=== PATIENT | male | born 1960 | race Caucasian/White ===

== ENCOUNTER 2016-10-29 19:07 | Emergency (ER) | payer MEDICAID ==
[~2016-10-29] VITALS: Ht 190.5 cm; Wt 94.8 kg
[2016-10-29 20:27] LABS: CONDITION Y; DEFINITIVE SEE PRINTOUT; Hematocrit 29.9 % (41.0-53.0); Hemoglobin 10.1 g/dL (13.5-17.5); Mean Corpuscular Hemoglobin 32.2 pg (28.0-32.0); Mean Corpuscular Hgb Conc. 33.9 g/dL (32.0-36.0); Mean Corpuscular Volume 94.8 fL (80.0-100.0); Mean Platelet Volume 7.4 fL (7.4-10.4); Platelet Count (auto) 328 10^3/uL (140-450); Red Cell Distribution Width 17.9 % (11.6-16.0); SUSPECT SEE PRINTOUT
[2016-10-29 20:49] LABS: Albumin 3.8 g/dL (3.4-5.0); BUN/Creatinine Ratio 13.3; Calcium 8.9 mg/dL (8.5-10.1); Potassium 4.2 mmol/L (3.5-5.1)
[2016-10-29 20:51] LABS: Bilirubin, Total 0.5 mg/dL (0.2-1.0); Total Protein 7.2 g/dL (6.4-8.2); White Blood Cell 33.2 10^3/uL (4.4-10.8)
[2016-10-29 20:52] LABS: Promyelocytes % 0; Reactive Lymphocytes 0
[2016-10-29 21:12] VITALS: BP 136/93
[2016-10-29 21:24] LABS: Metamyelocytes % 3; Myelocytes % 6
[2016-10-29 21:26] LABS: Platelet Estimate Adequate; Polychromasia Slight
[2016-10-29 21:27] LABS: Anisocytosis Moderate; Ovalocytes FEW; Tear Drop Cells FEW
== END 2016-10-30 00:08 | disposition home or self-care (01) ==
LOC: ER 19:17
DX: D72.829 Elevated white blood cell count, unspecified (principal)
CPT/HCPCS: 36415; 71010; 80053; 83605; 85007; 85027; 87040

== ENCOUNTER 2016-11-26 10:13 | Emergency (ER) | payer MEDICAID ==
[~2016-11-26] VITALS: Ht 190.5 cm; Wt 95.3 kg
[2016-11-26 11:13] LABS: Basophils # (auto) 0 uL; CONDITION Y; DEFINITIVE SEE PRINTOUT; Eosinophils # (auto) 0 uL; Eosinophils % (auto) 0.1 % (0.0-7.0); Hematocrit 19.1 % (41.0-53.0); Lymphocytes # (auto) 0.1 uL; Lymphocytes % (auto) 1.3 % (10.0-50.0); Mean Corpuscular Hemoglobin 33.3 pg (28.0-32.0); Mean Corpuscular Hgb Conc. 34.2 g/dL (32.0-36.0); Mean Corpuscular Volume 97.5 fL (80.0-100.0); Mean Platelet Volume 7.8 fL (7.4-10.4); Monocytes # (auto) 0 uL; Neutrophils # (auto) 9.6 uL; Neutrophils % (auto) 98.6 % (37.0-80.0); Platelet Count (auto) 106 10^3/uL (140-450); White Blood Cell 9.7 10^3/uL (4.4-10.8)
[2016-11-26] MEDS ORDERED: MORPHINE SULFATE 4 MG/ML SYRG IV ONE (11:15)
[2016-11-26] MEDS ORDERED: ONDANSETRON HCL 4 MG/2 ML VIAL IV ONE (11:15)
[2016-11-26 11:30] LABS: INR 0.98 (0.9-1.15); Partial Thromboplastin Time 28.4 sec (22.64-33.71); Prothrombin Time 10.7 sec (9.37-12.3)
[2016-11-26 11:31] LABS: Hemoglobin 6.5 g/dL (13.5-17.5); Red Cell Distribution Width 20.9 % (11.6-16.0)
[2016-11-26 11:45] LABS: Albumin 3.1 g/dL (3.4-5.0); Alkaline Phosphatase 47 U/L (45-117); Anion Gap 7 (5-15); Aspartate Aminotransferase 10 U/L (15-37); BUN/Creatinine Ratio 19.5; Bilirubin, Total 0.7 mg/dL (0.2-1.0); Blood Urea Nitrogen 15 mg/dL (7-18); Calcium 8.2 mg/dL (8.5-10.1); Carbon Dioxide 25 mmol/L (21-32); Chloride 106 mmol/L (98-107); GFR African American 134 mL/min; GFR Non-African American 111 mL/min; Glucose 135 mg/dL (74-106); Magnesium 2.4 mg/dL (1.6-2.6); Potassium 3.8 mmol/L (3.5-5.1); Sodium 138 mmol/L (136-145); Total Protein 5.8 g/dL (6.4-8.2)
[2016-11-26 11:58] LABS: Anisocytosis Moderate; Platelet Estimate Decreased
[2016-11-26 13:15] VITALS: BP 110/64
== END 2016-11-26 13:58 | disposition short-term general hospital (02) ==
LOC: EDBD 10:13 → EDUNIT# 10:13 → ER 10:13
DX: R07.9 Chest pain, unspecified (principal); D64.9 Anemia, unspecified; I25.2 Old myocardial infarction; F17.210 Nicotine dependence, cigarettes, uncomplicated; Z85.6 Personal history of leukemia; Z86.718 Personal history of other venous thrombosis and embolism
CPT/HCPCS: 36415; 71010; 80053; 83735; 84484; 85025; 85379; 85610; 85730; 86850; 86900; 86901; 93005; 96374; 96375; 99291; J2270; J2405; 86920

== ENCOUNTER 2016-12-02 11:41 | Observation (INO) | payer MEDICAID ==
[2016-12-02] VITALS (8 sets, daily range): BP systolic 107–133; BP diastolic 60–78
[~2016-12-02] VITALS: Ht 190.5 cm; Wt 95.3 kg
[2016-12-02] MEDS ORDERED: ACETAMINOPHEN 325 MG TAB PO ONE ×3 (12:30→15:45)
[2016-12-02] MEDS ORDERED: SODIUM CHLORIDE 0.9% 1,000 ML IV ONE (12:30)
[2016-12-02 12:50] LABS: BUN/Creatinine Ratio 18.8; Calcium 8.6 mg/dL (8.5-10.1); Potassium 3.8 mmol/L (3.5-5.1)
[2016-12-02 12:53] LABS: Total Protein 6.9 g/dL (6.4-8.2)
[2016-12-02] MEDS ORDERED: SODIUM CHLORIDE 0.9% 1,000 ML IVB ONE (13:30)
[2016-12-02 13:47] LABS: Basophils # (auto) 0 uL; CONDITION Y; DEFINITIVE SEE PRINTOUT; Eosinophils # (auto) 0 uL; Eosinophils % (auto) 14.8 % (0.0-7.0); Hematocrit 19.5 % (41.0-53.0); Lymphocytes # (auto) 0.1 uL; Lymphocytes % (auto) 35.2 % (10.0-50.0); Mean Corpuscular Hemoglobin 31.7 pg (28.0-32.0); Mean Corpuscular Volume 90.6 fL (80.0-100.0); Mean Platelet Volume 7.5 fL (7.4-10.4); Monocytes # (auto) 0 uL; Monocytes % (auto) 14.8 % (0.0-12.0); Neutrophils # (auto) 0.1 uL; Neutrophils % (auto) 35.2 % (37.0-80.0); Platelet Count (auto) 33 10^3/uL (140-450); Red Cell Distribution Width 17.6 % (11.6-16.0); SUSPECT SEE PRINTOUT
[2016-12-02 13:48] LABS: Hemoglobin 6.8 g/dL (13.5-17.5); White Blood Cell 0.2 10^3/uL (4.4-10.8)
[2016-12-02 13:51] LABS: Urine Bilirubin Negative (Negative); Urine Blood 1+ /uL (Negative); Urine Color Yellow (Yellow); Urine Glucose Normal (Normal); Urine Ketone Negative (Negative); Urine Nitrite Negative (Negative); Urine RBC 24 /hpf (0 - 3); Urine pH 6.5 (5.0-8.0)
[2016-12-02 13:57] LABS: INR 1.15 (0.9-1.15); Partial Thromboplastin Time 38.5 sec (22.64-33.71); Prothrombin Time 12.6 sec (9.37-12.3)
[2016-12-02 14:00] LABS: Platelet Estimate Markedly Decreased
[2016-12-02] MEDS ORDERED: methylPREDNISolone SOD SUCC 125 MG/2 ML VL ONE (16:19)
[2016-12-02] MEDS ORDERED: diphenhdrAMINE HCL 50 MG/1 ML VL ONE (16:19)
[2016-12-02] MEDS ORDERED: methylPREDNISolone SOD SUCC 125 MG/2 ML VL IV ONE (16:30)
[2016-12-02] MEDS ORDERED: diphenhdrAMINE HCL 50 MG/1 ML VL IV ONE (16:30)
[2016-12-02] MEDS ORDERED: MORPHINE SULF INJ 2 MG/ML SYRINGE 1ML IV ONE (17:15)
[2016-12-02] MEDS ORDERED: ONDANSETRON HCL 4 MG/2 ML VIAL IV ONE ×2 (17:15→18:15)
[2016-12-02] MEDS ORDERED: HYDROmorphone HCL 2 MG/ML VL IV ONE (18:15)
== END 2016-12-02 17:18 | disposition home or self-care (01) | DRG 663 ==
LOC: ER 11:41 → OVERFLOW 13:31 → ER 17:18
PROVIDERS: ADMIT Family Medicine; ATTEND Family Medicine
DX: D64.9 Anemia, unspecified (principal); C91.01 Acute lymphoblastic leukemia, in remission; D69.6 Thrombocytopenia, unspecified; F17.210 Nicotine dependence, cigarettes, uncomplicated; I25.2 Old myocardial infarction; Z86.19 Personal history of other infectious and parasitic diseases
CPT/HCPCS: 36415; 36430; 71010; 80053; 81001; 82962; 83605; 83735; 85025; 85610; 85730; 86850; 86900; 86901; 86920; 87040; 93005; 96361; 96374; 96375; 99291; G0378; J1170; J1200; J2270; J2405; J2930; J7030; P9016

== ENCOUNTER 2017-02-15 11:11 | Emergency (ER) | payer MEDICAID ==
[~2017-02-15] VITALS: Ht 182.9 cm; Wt 72.6 kg
[2017-02-15 11:18] VITALS: BP 120/77
[2017-02-15] MEDS ORDERED: SODIUM CHLORIDE 0.9% 1,000 ML IV ONE (11:45)
[2017-02-15] MEDS ORDERED: ONDANSETRON HCL 4 MG/2 ML VIAL IV ONE (11:45)
[2017-02-15 12:26] LABS: Basophils # (auto) 0 uL; Eosinophils # (auto) 0 uL; Eosinophils % (auto) 0.4 % (0.0-7.0); Monocytes # (auto) 1.3 uL
[2017-02-15 12:28] LABS: Basophils % (auto) 0.2 % (0.0-2.0); Hematocrit 29.8 % (41.0-53.0); Lymphocytes # (auto) 0.6 uL; Mean Corpuscular Hemoglobin 36.4 pg (28.0-32.0); Mean Corpuscular Hgb Conc. 33.8 g/dL (32.0-36.0); Mean Corpuscular Volume 107.8 fL (80.0-100.0); Mean Platelet Volume 8.8 fL (6.9-10.8); Monocytes % (auto) 16.6 % (0.0-12.0); Neutrophils # (auto) 6.1 uL; Neutrophils % (auto) 75.8 % (37.0-80.0); Nucleated Red Blood Cells % 0.1 %; Platelet Count (auto) 127 10^3/uL (140-450); Red Cell Distribution Width 22.8 % (11.8-14.3)
[2017-02-15 12:47] LABS: Albumin 4.2 g/dL (3.4-5.0); BUN/Creatinine Ratio 20.5; Bilirubin, Total 0.8 mg/dL (0.2-1.0); Calcium 9.2 mg/dL (8.5-10.1); Potassium 4.2 mmol/L (3.5-5.1); Total Protein 7.1 g/dL (6.4-8.2)
== END 2017-02-15 14:50 | disposition home or self-care (01) ==
LOC: EDBD 11:11 → EDUNIT# 11:11 → ER 11:11
DX: R11.0 Nausea (principal); D64.9 Anemia, unspecified; F12.10 Cannabis abuse, uncomplicated; F17.210 Nicotine dependence, cigarettes, uncomplicated; Z85.6 Personal history of leukemia
CPT/HCPCS: 36415; 71020; 80053; 85025; 93005

== ENCOUNTER 2017-05-19 21:35 | Emergency (ER) | payer MEDICAID ==
[~2017-05-19] VITALS: Ht 190.5 cm; Wt 92.1 kg
[2017-05-19 22:15] LABS: Red Cell Distribution Width 18.5 % (11.8-14.3)
[2017-05-19 22:18] LABS: Hematocrit 18.8 % (41.0-53.0); Mean Corpuscular Hemoglobin 33.7 pg (28.0-32.0); Mean Corpuscular Hgb Conc. 34.7 g/dL (32.0-36.0); Mean Corpuscular Volume 97.1 fL (80.0-100.0); Platelet Count (auto) 44 10^3/uL (140-450); Red Blood Cells 1.94 10^6/uL (4.5-5.90)
[2017-05-19 22:28] LABS: Alanine Aminotransferase 24 U/L (16-61); Albumin 3.6 g/dL (3.4-5.0); Anion Gap 7 (5-15); Aspartate Aminotransferase 23 U/L (15-37); Blood Urea Nitrogen 18 mg/dL (7-18); Calcium 8.4 mg/dL (8.5-10.1); Carbon Dioxide 24 mmol/L (21-32); Chloride 103 mmol/L (98-107); GFR African American 81 mL/min; GFR Non-African American 67 mL/min; Glucose 112 mg/dL (74-106); INR 1.01 (0.9-1.15); Partial Thromboplastin Time 22.6 sec (22.64-33.71); Potassium 4.5 mmol/L (3.5-5.1); Sodium 134 mmol/L (136-145)
[2017-05-19 22:33] LABS: Alkaline Phosphatase 107 U/L (45-117); Bilirubin, Total 0.7 mg/dL (0.2-1.0); Total Protein 6.6 g/dL (6.4-8.2)
[2017-05-19 22:38] LABS: Hemoglobin 6.5 g/dL (13.5-17.5)
[2017-05-19 22:39] LABS: White Blood Cell 1.8 10^3/uL (4.4-10.8)
[2017-05-19 22:41] LABS: Band Neutrophils % (manual) 0; Basophils % (manual) 0 (0.0-2.0); Blast Cells 0; Metamyelocytes % 0; Myelocytes % 0; Promyelocytes % 0; Reactive Lymphocytes 0
[2017-05-19 23:33] LABS: Eosinophils % (manual) 2 (0-7); Lymphocytes % (manual) 24 (10.0-50.0); Monocytes % (manual) 24 (0-12)
[2017-05-20] VITALS (7 sets, daily range): BP systolic 103–116; BP diastolic 52–70
[2017-05-20] MEDS ORDERED: SODIUM CHLORIDE 0.9% 1,000 ML IV ONE (01:00)
[2017-05-20] MEDS ORDERED: HYDROmorphone HCL 2 MG/ML VL IV ONE (01:00)
[2017-05-20] MEDS ORDERED: ONDANSETRON HCL 4 MG/2 ML VIAL IV ONE (01:00)
[2017-05-20] MEDS ORDERED: cefTRIAXone 1GM/10ml IVPUSH 10 ML IV ONE (01:30)
== END 2017-05-20 08:47 | disposition home or self-care (01) ==
LOC: EDBD 21:35 → ER 21:35
DX: D72.819 Decreased white blood cell count, unspecified (principal); R07.9 Chest pain, unspecified; R53.1 Weakness; I25.2 Old myocardial infarction; F17.210 Nicotine dependence, cigarettes, uncomplicated; F12.10 Cannabis abuse, uncomplicated; Z92.21 Personal history of antineoplastic chemotherapy
CPT/HCPCS: 36415; 36430; 71045; 71046; 80053; 83605; 84484; 85007; 85027; 85610; 85730; 86850; 86900; 86901; 86920; 93005; 96361; 96374; 96375; 99285; J1170; J2405; P9016

== ENCOUNTER 2017-06-04 18:06 | Emergency (ER) | payer MEDICAID ==
[~2017-06-04] VITALS: Ht 190.5 cm; Wt 92.1 kg
[2017-06-04 18:22] VITALS: BP 102/66
[2017-06-04 18:55] LABS: Hematocrit 26.8 % (41.0-53.0)
[2017-06-04 19:05] LABS: Mean Corpuscular Hemoglobin 33.8 pg (28.0-32.0); Mean Corpuscular Hgb Conc. 33.4 g/dL (32.0-36.0); Mean Corpuscular Volume 101.4 fL (80.0-100.0); Platelet Count (auto) 66 10^3/uL (140-450); Red Blood Cells 2.65 10^6/uL (4.5-5.90)
[2017-06-04 19:08] LABS: Red Cell Distribution Width 25.2 % (11.8-14.3)
[2017-06-04 19:10] LABS: Albumin 3.8 g/dL (3.4-5.0); BUN/Creatinine Ratio 12.4; Bilirubin, Total 0.6 mg/dL (0.2-1.0); Calcium 8.4 mg/dL (8.5-10.1); Potassium 4.3 mmol/L (3.5-5.1)
[2017-06-04 19:11] LABS: Basophils % (manual) 0 (0.0-2.0); Blast Cells 0; Eosinophils % (manual) 0 (0-7); Metamyelocytes % 0; Myelocytes % 0; Promyelocytes % 0; Reactive Lymphocytes 0
[2017-06-04 21:10] LABS: Band Neutrophils % (manual) 14; Lymphocytes % (manual) 6 (10.0-50.0); Monocytes % (manual) 15 (0-12)
== END 2017-06-05 02:00 | disposition left against medical advice (07) ==
LOC: ER 18:06
DX: R50.9 Fever, unspecified (principal); Z53.21 Procedure and treatment not carried out due to patient leaving prior to being seen by health care provider
CPT/HCPCS: 36415; 71046; 80053; 85007; 85027

== ENCOUNTER 2017-09-20 17:24 | Observation (INO) | payer MEDICAID ==
[~2017-09-20] VITALS: Ht 172.7 cm; Wt 68.0 kg
[2017-09-20] MEDS ORDERED: IBUPROFEN 800 MG TAB PO ONE (17:45)
[2017-09-20] MEDS ORDERED: SODIUM CHLORIDE 0.9% 1,000 ML IV ONE (19:00)
[2017-09-20 19:32] LABS: Platelet Count (auto) 53 10^3/uL (140-450); White Blood Cell 2.6 10^3/uL (4.4-10.8)
[2017-09-20 19:34] LABS: Hematocrit 35.8 % (41.0-53.0); Hemoglobin 12.3 g/dL (13.5-17.5); Mean Corpuscular Hemoglobin 36.4 pg (28.0-32.0); Mean Corpuscular Hgb Conc. 34.3 g/dL (32.0-36.0); Red Blood Cells 3.38 10^6/uL (4.5-5.90); Red Cell Distribution Width 15.3 % (11.8-14.3)
[2017-09-20 19:36] LABS: Band Neutrophils % (manual) 0; Basophils % (manual) 0 (0.0-2.0); Blast Cells 0; Eosinophils % (manual) 0 (0-7); Metamyelocytes % 0; Myelocytes % 0; Promyelocytes % 0; Reactive Lymphocytes 0
[2017-09-20 19:48] LABS: Alanine Aminotransferase 30 U/L (16-61); Albumin 3.9 g/dL (3.4-5.0); Alkaline Phosphatase 95 U/L (45-117); Amylase 39 U/L (25-115); Anion Gap 10 (5-15); Aspartate Aminotransferase 27 U/L (15-37); Bilirubin, Total 0.6 mg/dL (0.2-1.0); Blood Urea Nitrogen 17 mg/dL (7-18); Calcium 8.4 mg/dL (8.5-10.1); Carbon Dioxide 22 mmol/L (21-32); Chloride 105 mmol/L (98-107); GFR African American 99 mL/min; GFR Non-African American 82 mL/min; Glucose 105 mg/dL (74-106); Lipase 85 U/L (73-393); Magnesium 2.5 mg/dL (1.6-2.6); Sodium 137 mmol/L (136-145); Total Protein 7.1 g/dL (6.4-8.2)
[2017-09-20 20:29] LABS: Lymphocytes % (manual) 18 (10.0-50.0); Monocytes % (manual) 16 (0-12)
[2017-09-20] MEDS ORDERED: HYDROcodone-ACET 10/325MG TAB PO ONE (20:30)
[2017-09-20 22:40] VITALS: BP 88/56
[2017-09-20] MEDS ORDERED: cefTRIAXone 1GM/10ml IVPUSH 10 ML IV ONE (23:45)
== END 2017-09-21 00:23 | disposition home or self-care (01) | DRG 140 ==
LOC: EDBD 17:24 → ER 17:24 → OVERFLOW 17:25 → ER 09-21 00:23
PROVIDERS: ADMIT Emergency Medicine; ATTEND Emergency Medicine
DX: J44.1 Chronic obstructive pulmonary disease with (acute) exacerbation (principal); D72.819 Decreased white blood cell count, unspecified; R53.1 Weakness; I25.2 Old myocardial infarction; Z85.89 Personal history of malignant neoplasm of other organs and systems; F17.210 Nicotine dependence, cigarettes, uncomplicated; Z85.6 Personal history of leukemia
CPT/HCPCS: 36415; 36600; 71045; 80053; 82150; 82805; 83605; 83690; 83735; 83880; 84484; 85007; 85027; 85379; 87040; 87076; 87077; 93005; 96361; 96374; 99285; G0378